=== PATIENT | female | born 1975 | race Caucasian/White ===

== ENCOUNTER 2018-03-10 03:07 | Emergency (ER) | payer MEDICAID ==
[2018-03-10 03:21] VITALS: BP 121/70
[2018-03-10 03:37] LABS: BILIRUBIN,URINE NEGATIVE (NEGATIVE); GLUCOSE, URINE (UA) NEGATIVE (NEGATIVE); KETONES,URINE (UA) NEGATIVE (NEGATIVE); LEUKOCYTE ESTERASE, URINE NEGATIVE (NEGATIVE); NITRITE,URINE NEGATIVE (NEGATIVE); OCCULT BLOOD,URINE SMALL (NEGATIVE); PROTEIN,URINE NEGATIVE (NEGATIVE); UROBILINOGEN,URINE 0.2 (NORMAL) E.U./dL (NORMAL)
[2018-03-10 03:45] LABS: BACTERIA,URINE None Seen /HPF (None Seen); CLARITY,URINE CLEAR (CLEAR); HCG UR QUAL NEGATIVE; SQUAMOUS EPITHELIAL CELL,UR RARE Squamous (<= Few)
[2018-03-10] MEDS ORDERED: PHENAZOPYRIDINE 100 MG TABLET PO STA (03:56)
[2018-03-10] MEDS ORDERED: SULFAMETH/TRIMETH DS 800/160 MG TABLET PO STA (03:56)
--- NOTE | 2018-03-10 03:56 | ED Physician Documentation ---
PD HPI FEMALE - Stated complaint Stated Complaint: FEMALE - Chief complaint Chief Complaint: Abd Pain - History obtained from History obtained from: Patient - History of Present Illness Timing - onset: Yesterday Timing - details: Gradual onset Associated symptoms: Pelvic pain, Dysuria, Urinary frequency Similar symptoms before: Work up / diagnostics Recently seen: Not recently seen - Additional information Additional information: Patient is a 43 year old diabetic female who is presenting to the emergency department for dysuria and increased urinary frequency. Patient states that the symptoms have been going on for the last few days. Patient reports a history of urinary tract and kidney infections and states that this feels similar. Review of Systems Ten Systems: 10 systems reviewed and negative Constitutional: denies: Fever, Chills GI: denies: Nausea, Constipation, Diarrhea : reports: Dysuria, Frequency, Hesitancy. 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 : None HEENT: None Psych: Bipolar disorder Musculoskeletal: None Derm: None - Past Surgical History Past Surgical History: Yes General: Cholecystectomy - Present Medications Home Medications: Ambulatory Orders Medication Instructions Recorded Confirmed ARIPiprazole [Abilify] 5 mg PO DAILY 03/10/18 03/10/18 Duloxetine HCl [Cymbalta] 120 mg PO 03/10/18 Gabapentin 300 mg PO 03/10/18 Insulin Aspart [Novolog Flexpen] 03/10/18 Phenazopyridine HCl [Pyridium] 200 mg PO TID PRN #6 tablet 03/10/18 Sulfamethox/Trimeth 800/160 1 each PO BID #14 tablet 03/10/18 [Bactrim Ds 800/160] metFORMIN [Glucophage] 500 mg PO ONCE 03/10/18 03/10/18 - Allergies Allergies/Adverse Reactions: Allergies Allergy/AdvReac Type Severity Reaction Status Date / Time naproxen Allergy Respiratory Verified 03/10/18 03:22 - Social History Does the pt smoke?: Yes Smoking Status: Current every day smoker Does the pt drink ETOH?: No Does the pt have substance abuse?: No Substance Use and Type: Marijuana - Immunizations Immunizations are current?: Yes PD ED PE NORMAL - Vitals Vital signs reviewed: Yes - General General: Alert and oriented X 3, No acute distress - HEENT HEENT: Atraumatic - Cardiac Cardiac: RRR - Respiratory Respiratory: No respiratory distress - Abdomen Abdomen: Soft - Derm Derm: Normal color - Extremities Extremities: No deformity - Neuro Neuro: Alert and oriented X 3 Eye Opening: Spontaneous - Psych Psych: Normal mood Results - Vitals Vitals: Vital Signs - 24 hr 03/10/18 03:18 Temperature 35.8 C L Heart Rate 72 Respiratory 16 Rate Blood Pressure 121/70 O2 Saturation 96 Oxygen O2 Source Room air - Labs Labs: Laboratory Tests 03/10/18 03:28 Urine Color YELLOW Urine Clarity CLEAR Urine pH 6.0 Ur Specific [place] 1.020 Urine Protein NEGATIVE Urine Glucose (UA) NEGATIVE Urine Ketones NEGATIVE Urine Occult Blood SMALL H Urine Nitrite NEGATIVE Urine Bilirubin NEGATIVE Urine Urobilinogen 0.2 (NORMAL) Ur Leukocyte Esterase NEGATIVE Urine RBC 6-10 H Urine WBC 0-3 Ur Squamous Epith Cells RARE Squamous Urine Bacteria None Seen Ur Microscopic Review INDICATED Urine Culture Comments NOT INDICATED Urine HCG, Qual NEGATIVE PD MEDICAL DECISION MAKING - ED course Complexity details: reviewed old records, reviewed results, re-evaluated patient , considered differential, d/w patient ED course: Patient was seen and examined at bedside. Urine was collected. while patient' s urine results were fairly unremarkable patient clinically had a urinary tract infection. patient was started on bactrim and pydridium. Patient required no further inpatient work up and was stable for discharge with outpatient follow up. - Sepsis Event Vital Signs: Vital Signs - 24 hr 03/10/18 03:18 Temperature 35.8 C L Heart Rate 72 Respiratory 16 Rate Blood Pressure 121/70 O2 Saturation 96 Oxygen O2 Source Room air Departure - Departure Disposition: 01 Home, Self Care Clinical Impression: Urinary tract infection Condition: Good Instructions: ED UTI Cystitis Female Follow-Up: Jermain Walker MD [Primary Care Provider] - Within 3 Days Prescriptions: Phenazopyridine HCl [Pyridium] 200 mg PO TID PRN #6 tablet PRN Reason: dysuria Sulfamethox/Trimeth 800/160 [Bactrim Ds 800/160] 1 each PO BID #14 tablet Comments: Your symptoms today are likely being caused by a urinary tract infection. You will need to stay well hydrated and increase your intake of water. You are being started on antibiotics and you will take them twice a day for the next week. You should take it with yogurt or probiotics to help reduce the gi side effects. You should follow up with your doctor if your symptoms persist. You may return to the emergency department at any time for new, worsening or uncontrollable symptoms. Discharge Date/Time: 03/10/18 04:04
== END 2018-03-10 04:04 | disposition home or self-care (01) ==
LOC: ED 03:07
DX: N39.0 Urinary tract infection, site not specified (principal); E11.9 Type 2 diabetes mellitus without complications; Z79.4 Long term (current) use of insulin
CPT/HCPCS: 81001; 81025; 99283; A9270; 81003; 87086

== ENCOUNTER 2018-04-04 08:07 | Outpatient (CLI) | payer MEDICAID ==
[2018-04-04 13:03] LABS: CALCIUM 9.2 mg/dL (8.5-10.3); CREATININE 0.7 mg/dL (0.4-1.0)
[2018-04-04 13:13] LABS: HEMOGLOBIN A1C 0.52 g/dL; HEMOGLOBIN A1C % 5.5 % (4.6-6.2)
== END 2018-04-04 08:08 | disposition home or self-care (01) ==
LOC: LAB.WCP 08:07
PROVIDERS: ATTEND Family Medicine
DX: E11.9 Type 2 diabetes mellitus without complications (principal)
CPT/HCPCS: 36415; 80048; 82043; 83036

== ENCOUNTER 2018-07-31 07:32 | Day surgery (SDC) | payer MEDICAID ==
[~2018-07-31 07:32] MED LIST: LACTATED RINGERS 1,000 ML IV ONE
[2018-07-31] MEDS ORDERED: LIDO GARGLE 30 ML BOTTLE ONE (08:08)
[2018-07-31 08:10] LABS: HCG UR QUAL NEGATIVE
[2018-07-31] MEDS ORDERED: MIDAZOLAM 2 MG/2 ML VIAL IVP ONE (08:18)
[2018-07-31] MEDS ORDERED: fentaNYL 100 MCG/2 ML VIAL IVP ONE (08:18)
[2018-07-31] MEDS ORDERED: BENZOCAINE/TETRACAINE/BUTAMBEN 20 GM TOP ONE (08:22)
[2018-07-31] MEDS ORDERED: LIDO GARGLE 30 ML BOTTLE PO ONE (08:22)
--- NOTE | 2018-07-31 10:23 | PROCEDURE REPORT ---
DATE OF SERVICE: 07/31/2018 Physician: Gm Triplett MD PREOPERATIVE DIAGNOSIS: Rectal bleeding. POSTOPERATIVE DIAGNOSIS: Normal esophagogastroduodenoscopy and colonoscopy. PROCEDURES: EGD and colonoscopy. INDICATIONS OF PROCEDURE: Patient is a 43-year-old woman who came to the clinic complaining of periodic rectal bleeding. She had an EGD and colonoscopy a year and a half ago which was significant for an ulcer at that time. PROCEDURE DETAIL: The risks and benefits were explained to the patient. She agreed to the procedure. She was taken to the operating room and given sedation. A well-lubricated endoscope was advanced through the oral cavity down to the second portion of the duodenum without difficulty. Duodenum was found to be normal. The scope was slowly withdrawn and the stomach insufflated. There were no signs of ulcers or gastritis or any other abnormality in the stomach. Retroflexion was performed at the GE junction. No abnormalities were seen. No evidence of hiatal hernia. The scope was then withdrawn into the esophagus. There were no signs of esophagitis. The scope was then completely withdrawn and the patient positioned for a colonoscopy. A well-lubricated colonoscope was advanced through the anus all the way to the cecum without difficulty. It was then slowly withdrawn with the colon insufflated to examine all the mucosal surfaces. Prep was adequate. She had a few scattered diverticula in the sigmoid colon. Otherwise, there were no abnormalities; that includes no masses, polyps, erosions or sources of bleeding. The scope was then completely withdrawn after retroflexion at the anal verge. She had evidence of internal hemorrhoids, which may be the source of her bleeding. The patient was then taken to recovery in stable condition, and procedure was terminated. COMPLICATIONS: None. SPECIMEN: None. PLAN: Repeat colonoscopy in 10 years. TD: 07/31/2018 09:35 SHAKILA
[2018-07-31 10:29] VITALS: BP 101/65
== END 2018-07-31 07:33 | disposition home or self-care (01) ==
LOC: SDS 07:32
PROVIDERS: ATTEND Surgery
PROC: 0DJD8ZZ Inspection of Lower Intestinal Tract, Via Natural or Artificial Opening Endoscopic (ICD-10-PCS; principal; 2018-07-31 08:30)
PROC: 0DJ08ZZ Inspection of Upper Intestinal Tract, Via Natural or Artificial Opening Endoscopic (ICD-10-PCS; 2018-07-31 08:30)
DX: K62.5 Hemorrhage of anus and rectum (principal); Z09 Encounter for follow-up examination after completed treatment for conditions other than malignant neoplasm; Z87.11 Personal history of peptic ulcer disease; Z86.010 Personal history of colon polyps; K57.30 Diverticulosis of large intestine without perforation or abscess without bleeding; E11.9 Type 2 diabetes mellitus without complications; F17.210 Nicotine dependence, cigarettes, uncomplicated; J45.909 Unspecified asthma, uncomplicated; F31.9 Bipolar disorder, unspecified; F41.0 Panic disorder [episodic paroxysmal anxiety]; E66.9 Obesity, unspecified; Z68.38 Body mass index [BMI] 38.0-38.9, adult; Z79.84 Long term (current) use of oral hypoglycemic drugs; Z79.51 Long term (current) use of inhaled steroids
CPT/HCPCS: 43235; 45378; 81025; A9270; J7120

== ENCOUNTER 2018-08-07 08:34 | Outpatient (CLI) | payer MEDICAID ==
--- NOTE | 2018-08-08 12:44 | Mammography Report ---
Reason: SCREENING MAMMO Procedure Date: 08/07/2018 Accession Number: [id number] / [id number] Procedure: MGN - Screening Mammo Dig Bilat CPT Code: FULL RESULT: EXAM: Screening Mammo Dig Bilat DATE: 08/07/2018 9:34 AM CLINICAL HISTORY: Routine screening. Baseline exam. TECHNIQUE: Bilateral CC and MLO views were obtained. COMPARISON: None FINDINGS: The breast tissue is heterogeneously dense. No suspicious masses, clustered microcalcifications, or regions of architectural distortion are identified. IMPRESSION: Negative examination RECOMMENDATION: Routine annual screening unless otherwise clinically indicated. BIRADS CATEGORY 1: Negative STANDARD QUALIFYING STATEMENTS: 1. This examination was reviewed with the aid of Computer-Aided Detection (CAD). 2. A negative or benign imaging report should not delay biopsy if clinically suspicious findings are present. Consider surgical consultation if warrented. More than 5% of cancers are not identified by imaging. 3. Dense breasts may obscure an underlying neoplasm.
== END 2018-08-07 08:35 | disposition home or self-care (01) ==
LOC: DI.N 08:34
DX: Z12.31 Encounter for screening mammogram for malignant neoplasm of breast (principal)
CPT/HCPCS: 77067

== ENCOUNTER 2018-11-23 17:00 | Outpatient (CLI) | payer MEDICAID | END 2018-11-23 17:01 | disposition EMS.NT | LOC: EMS 17:00 | PROVIDERS: ATTEND Surgery | DX: M54.9 Dorsalgia, unspecified (principal); R06.02 Shortness of breath; R07.1 Chest pain on breathing; E11.9 Type 2 diabetes mellitus without complications; I10 Essential (primary) hypertension; Z72.0 Tobacco use ==

== ENCOUNTER 2019-02-14 08:00 | Outpatient (CLI) | payer MEDICAID ==
[2019-02-14 12:41] LABS: CREATININE,URINE 208.7 mg/dL; HB2 TOTAL 13.5 g/dL; HEMOGLOBIN A1C 0.77 g/dL; HEMOGLOBIN A1C % 7.4 % (4.6-6.2); MICROALBUM/CREATININE RATIO,UR 4.8 ug/mg (<30.0)
[2019-02-14 12:42] LABS: BUN - BLOOD UREA NITROGEN 12 mg/dL (6-20); CALCIUM 8.8 mg/dL (8.5-10.3); CARBON DIOXIDE - CO2 26 mmol/L (21-32); CHLORIDE 101 mmol/L (101-111); CHOL/HDL RATIO 5.3 (<4.4); CHOLESTEROL 139 mg/dL; CREATININE 0.8 mg/dL (0.4-1.0); GFR - MDRD 79 (>89); GLUCOSE 254 mg/dL (70-100); HDL CHOLESTEROL 26 mg/dL; LDL CHOLESTEROL,CALCULATED 86 mg/dL; LDL/HDL RATIO 3.3 (<4.4); SODIUM 140 mmol/L (135-145); VLDL CHOLESTEROL 27 mg/dL
== END 2019-02-14 23:59 | disposition home or self-care (01) ==
LOC: LAB.N 08:00
PROVIDERS: ATTEND Family Medicine
DX: E11.9 Type 2 diabetes mellitus without complications (principal); Z13.220 Encounter for screening for lipoid disorders
CPT/HCPCS: 36415; 80048; 80061; 82043; 82570; 83036; 83721

== ENCOUNTER 2019-04-08 16:57 | Emergency (ER) | payer MEDICAID ==
[2019-04-08 17:05] VITALS: BP 122/74
[2019-04-08] MEDS ORDERED: IPRATROPIUM/ALBUTEROL 3 ML NEB INH STA (17:17)
--- NOTE | 2019-04-08 17:37 | ED Physician Documentation ---
PD HPI DYSPNEA - Stated complaint Stated Complaint: SOA - Chief complaint Chief Complaint: Resp - History obtained from History obtained from: Patient - History of Present Illness Timing - onset: Yesterday Timing - onset during: Rest Timing - duration: Days (2) Timing - details: Gradual onset Pain level max: 0 Pain level now: 0 Improved by: Rest Worsened by: Exertion Associated symptoms: Cough, Wheezing. No: Fever Recently seen: Not recently seen - Additional information Additional information: smokes 1ppd. history of asthma. no inhaler. 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 : None HEENT: None Psych: Depression, Anxiety, Bipolar disorder, Panic attacks Musculoskeletal: None Derm: Psoriasis - Past Surgical History Past Surgical History: Yes General: Cholecystectomy, Colonoscopy /FACEPIECE LINE SUPERVISOR: Tubal ligation, LEEP (Cervical surgery) - Present Medications Home Medications: Ambulatory Orders Medication Instructions Recorded Confirmed metFORMIN [Glucophage] 500 mg PO ONCE 03/10/18 07/30/18 Amitriptyline [Elavil] 25 mg PO DAILY 07/30/18 07/30/18 Oxybutynin [Ditropan] 5 mg PO DAILY 07/30/18 07/30/18 Topiramate [Topamax] 50 mg PO DAILY 07/30/18 07/30/18 Albuterol Sulfate [Proair Hfa 1 - 2 puffs INH Q4H PRN #1 inhaler 04/08/19 Inhaler] predniSONE [Deltasone] 10 mg PO [id number] #42 tab 04/08/19 - Allergies Allergies/Adverse Reactions: Allergies Allergy/AdvReac Type Severity Reaction Status Date / Time acetaminophen [From Percocet] Allergy Respiratory Verified 04/08/19 17:05 naproxen Allergy Respiratory Verified 04/08/19 17:05 oxycodone [From Percocet] Allergy Respiratory Verified 04/08/19 17:05 - Social History Does the pt smoke?: Yes Smoking Status: Current every day smoker Does the pt drink ETOH?: No Does the pt have substance abuse?: No - Immunizations Immunizations are current?: Yes PD ED PE NORMAL - Vitals Vital signs reviewed: Yes - General General: Alert and oriented X 3 - HEENT HEENT: Moist mucous membranes - Neck Neck: Supple, no meningeal sign - Cardiac Cardiac: RRR - Respiratory Respiratory: Other (Wheezing bilaterally with diminished breath sounds. Mild respiratory distress) - Abdomen Abdomen: Soft, Non tender, Non distended - Derm Derm: Warm and dry, No rash - Extremities Extremities: No edema - Neuro Neuro: Alert and oriented X 3 Results - Vitals Vitals: Vital Signs - 24 hr 04/08/19 04/08/19 04/08/19 17:03 17:25 18:12 Temperature 36.4 C L Heart Rate 87 73 76 Respiratory 24 22 20 Rate Blood Pressure 122/74 O2 Saturation 97 Oxygen O2 Source Room air - Rads (name of study) Chest x-ray Radiology: Prelim report reviewed, EMP read contemporaneously, See rad report (Atelectasis in the bases with tiny pleural effusions. ) PD MEDICAL DECISION MAKING - ED course Complexity details: reviewed results, re-evaluated patient, considered differential, d/w patient ED course: 44-year-old female with what appears to be an asthma exacerbation likely secondary to viral URI. Feels much better after nebulizer treatment and steroids. No hypoxia. No further respiratory distress. No indication for antibiotics. Will prescribe an inhaler and steroids for home and follow-up with her doctor. Patient counseled regarding signs and symptoms for which I believe and urgent re-evaluation would be necessary. Patient with good understanding of and agreement to plan and is comfortable going home at this time This document was made in part using voice recognition software. While efforts are made to proofread this document, sound alike and grammatical errors may occur. Departure - Departure Disposition: 01 Home, Self Care Clinical Impression: Viral URI Condition: Good Instructions: ED URI Viral W Wheezing Follow-Up: ОЛЕГ FLORES MD [Primary Care Provider] - Within 1 week Prescriptions: Albuterol Sulfate [Proair Hfa Inhaler] 1 - 2 puffs INH Q4H PRN #1 inhaler PRN Reason: Shortness Of Air/Wheezing predniSONE [Deltasone] 10 mg PO [id number] #42 tab Comments: Return if you worsen. Follow up with your doctor tomorrow as scheduled. There is no pneumonia on your chest xray Discharge Date/Time: 04/08/19 18:55
[2019-04-08] MEDS ORDERED: ALBUTEROL NEB 2.5 MG/3 ML INH STA (17:52)
[2019-04-08] MEDS ORDERED: predniSONE 20 MG TABLET PO STA (17:52)
--- NOTE | 2019-04-08 18:45 | XRAY Report ---
Reason: wheezing, dyspnea Procedure Date: 04/08/2019 Accession Number: [id number] / [id number] Procedure: XR - Chest 2 View X-Ray CPT Code: 50050 FULL RESULT: EXAM: CHEST RADIOGRAPHY EXAM DATE: 04/08/2019 06:11 PM. CLINICAL HISTORY: Wheezing. Dyspnea. Cough. COMPARISON: None. TECHNIQUE: 2 views. FINDINGS: Lungs/Pleura: Atelectasis in the bases, otherwise no focal opacities evident. Tiny pleural effusions. No pneumothorax. Normal volumes. Mediastinum: Heart and mediastinal contours are unremarkable. Other: No fractures identified. IMPRESSION: Atelectasis in the bases with tiny pleural effusions. RADIA
== END 2019-04-08 18:55 | disposition home or self-care (01) ==
LOC: ED 16:57
DX: J06.9 Acute upper respiratory infection, unspecified (principal); J45.909 Unspecified asthma, uncomplicated; F17.210 Nicotine dependence, cigarettes, uncomplicated; E11.9 Type 2 diabetes mellitus without complications; Z79.84 Long term (current) use of oral hypoglycemic drugs
CPT/HCPCS: 71046; 94640; 99284; J7512

== ENCOUNTER 2019-06-15 20:51 | Outpatient (CLI) | payer MEDICAID | END 2019-06-15 20:52 | disposition critical access hospital (66) | LOC: EMS 20:51 | PROVIDERS: ATTEND Surgery | DX: R07.89 Other chest pain (principal); R55 Syncope and collapse | CPT/HCPCS: A0425; A0427; A0999 ==

== ENCOUNTER 2019-06-15 21:12 | Emergency (ER) | payer MEDICAID ==
--- NOTE | 2019-06-15 21:30 | ED Physician Documentation ---
PD HPI CHEST PAIN - Stated complaint Stated Complaint: CHEST PAIN - Chief complaint Chief Complaint: Cardiac - History obtained from History obtained from: Patient - History of Present Illness Timing - onset: Today Timing - onset during: Other (Just prior to arrival standing at work) Timing - details: Abrupt onset Quality: Other (Squeezing) Location: Substernal Associated symptoms: Feeling faint / dizzy, Cough. 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 Rated the pain a 7 out of 10 it is now just a "discomfort". She said it felt like a tightness of squeezing and ringing type pain in the substernal region lasted for maybe 15 to 20 minutes and then she next thing she knew she woke up on the floor. Her coworker was standing there at her side at that time. She does not know how long she was out. No reported seizure activity. Patient did have a little difficulty breathing when she was having the pain and she felt dizzy. Denies headache. No urinary incontinence. She had no nausea vomiting or diarrhea. Patient is a diabetic and is on metformin and has had a syncopal episode related to low blood sugar in the past but her blood sugar was 167 in route here in the ambulance. She was given 4 baby aspirin and nitroglycerin in route. She denies any recent illness with sore throat or stuffy nose. No dysuria. She is not stating she just started her menstrual cycle yesterday and she is had her tubes tied. Patient does wake up at night with acid reflux and taste acid in the back of her throat. She was on omeprazole which she quit taking "a while back". Denies history of DVT. No peripheral edema. Patient is a smoker. Review of Systems Constitutional: denies: Fever Eyes: denies: Loss of vision Ears: denies: Ear pain Nose: denies: Rhinorrhea / runny nose Throat: denies: Sore throat Cardiac: reports: Chest pain / pressure. denies: Palpitations, Pedal edema Respiratory: reports: Dyspnea, Cough GI: denies: Abdominal Pain, Nausea, Vomiting, Diarrhea : reports: LMP (Just started). denies: Dysuria, Hesitancy, Incontinent, Now EGA Skin: denies: Rash Musculoskeletal: reports: Other (No injury in the syncopal epsode). denies: Neck pain, Back pain Neurologic: reports: Syncope, LOC. 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 : None HEENT: None Psych: Depression, Anxiety, Bipolar disorder, Panic attacks Musculoskeletal: None Derm: Psoriasis - Past Surgical History Past Surgical History: Yes General: Cholecystectomy, Colonoscopy /WATER GAS OPERATOR: Tubal ligation, LEEP (Cervical surgery) - Present Medications Home Medications: Ambulatory Orders Medication Instructions Recorded Confirmed metFORMIN [Glucophage] 500 mg PO ONCE 03/10/18 07/30/18 Amitriptyline [Elavil] 25 mg PO DAILY 07/30/18 07/30/18 Oxybutynin [Ditropan] 5 mg PO DAILY 07/30/18 07/30/18 Topiramate [Topamax] 50 mg PO DAILY 07/30/18 07/30/18 Albuterol Sulfate [Proair Hfa 1 - 2 puffs INH Q4H PRN #1 inhaler 04/08/19 Inhaler] predniSONE [Deltasone] 10 mg PO [id number] #42 tab 04/08/19 - Allergies Allergies/Adverse Reactions: Allergies Allergy/AdvReac Type Severity Reaction Status Date / Time acetaminophen [From Percocet] Allergy Respiratory Verified 06/15/19 21:19 naproxen Allergy Respiratory Verified 06/15/19 21:19 oxycodone [From Percocet] Allergy Respiratory Verified 06/15/19 21:19 - Social History Does the pt smoke?: Yes Smoking Status: Current every day smoker Does the pt drink ETOH?: No Does the pt have substance abuse?: No - Immunizations Immunizations are current?: Yes PD ED PE NORMAL - Vitals Vital signs reviewed: Yes - General General: Alert and oriented X 3, No acute distress, Well developed/nourished, Other (Obese) - HEENT HEENT: Atraumatic, PERRL, EOMI, Moist mucous membranes, Pharynx benign - Neck Neck: Supple, no meningeal sign, No bony TTP, No adenopathy, Thyroid normal, No bruit - Cardiac Cardiac: RRR, No murmur, Strong equal pulses - Respiratory Respiratory: No respiratory distress, Clear bilaterally - Abdomen Abdomen: Normal bowel sounds, Soft, Non tender, Non distended, No organomegaly - Derm Derm: Normal color, Warm and dry, No rash - Extremities Extremities: No deformity, No tenderness to palpate, Normal ROM s pain, No edema - Neuro Neuro: Alert and oriented X 3, bridge design engineer 2-12 intact, No motor deficit, No sensory deficit, Normal speech - Psych Psych: Normal mood, Normal affect Results - Vitals Vitals: Vital Signs - 24 hr 06/15/19 06/15/19 06/15/19 21:14 21:30 21:49 Temperature 37 C Heart Rate 84 78 75 Respiratory 15 22 19 Rate Blood Pressure 108/50 L 111/71 O2 Saturation 99 98 99 06/15/19 06/15/19 06/15/19 22:19 22:30 23:39 Temperature Heart Rate 80 76 82 Respiratory 21 21 16 Rate Blood Pressure 131/55 H 143/86 H 158/83 H O2 Saturation 100 100 98 06/16/19 06/16/19 06/16/19 00:06 00:36 01:06 Temperature Heart Rate 68 79 79 Respiratory 22 19 14 Rate Blood Pressure 144/99 H 108/52 L 120/73 O2 Saturation 99 100 99 06/16/19 06/16/19 01:30 02:00 Temperature 36.9 C Heart Rate 73 70 Respiratory 13 17 Rate Blood Pressure 123/70 123/70 O2 Saturation 99 99 Oxygen O2 Source Room air - EKG (time done) 2117 Rate: Rate (enter#) (81) Rhythm: NSR Intervals: Normal NV. No: Wide QRS Ischemia: Normal ST segments, Q waves (II, III, avF) 0100 Rate: Rate (enter#) (68) Rhythm: NSR Intervals: Normal NV. No: Prolonged QT, Wide QRS Ischemia: Normal ST segments, Q waves (II, III, avF) Compare to prior EKG: Unchanged from prior EKG - Labs Labs: Laboratory Tests 06/15/19 06/15/19 06/15/19 21:55 21:55 21:55 WBC 9.3 RBC 4.91 Hgb 12.0 Hct 37.8 MCV 77.0 L MCH 24.4 L MCHC 31.7 L RDW 16.5 H Plt Count 271 MPV 10.3 Neut # (Auto) 6.1 Lymph # (Auto) 2.2 [place] # (Auto) 0.6 Eos # (Auto) 0.3 Baso # (Auto) 0.1 Absolute Nucleated RBC 0.00 Nucleated RBC % 0.0 D-Dimer Sodium 138 Potassium 3.7 Chloride 102 Carbon Dioxide 30 Anion Gap 6.0 BUN 12 Creatinine 0.7 Estimated GFR (MDRD) 92 Glucose 179 H Calcium 9.0 Phosphorus 3.5 Magnesium 2.2 Total Bilirubin 0.3 AST 16 ALT 22 Alkaline Phosphatase 74 Troponin I High Sens 2.5 Total Protein 6.4 L Albumin 3.6 Globulin 2.8 Albumin/Globulin Ratio 1.3 Lipase 35 Serum HCG, Qual 06/15/19 06/15/19 06/16/19 21:55 21:55 00:55 WBC RBC Hgb Hct MCV MCH MCHC RDW Plt Count MPV Neut # (Auto) Lymph # (Auto) [place] # (Auto) Eos # (Auto) Baso # (Auto) Absolute Nucleated RBC Nucleated RBC % D-Dimer 206.3 Sodium Potassium Chloride Carbon Dioxide Anion Gap BUN Creatinine Estimated GFR (MDRD) Glucose Calcium Phosphorus Magnesium Total Bilirubin AST ALT Alkaline Phosphatase Troponin I High Sens 2.4 Total Protein Albumin Globulin Albumin/Globulin Ratio Lipase Serum HCG, Qual NEGATIVE - Rads (name of study) CXR Radiology: EMP read contemporaneously (Neg acute) CT head Radiology: See rad report (Neg acute) PD MEDICAL DECISION MAKING - ED course ED course: EKG does not show any acute changes. Initial troponin is negative. Her blood sugar was elevated. CBC and CMP otherwise normal. Chest x-ray is clear and head CT is negative. We will keep the patient here on a monitored bed for repeat troponin. She is taking phentermine and has been on it about 4 months. She did not feel any palpitations prior to passing out. Patient reported to nursing staff that she was having increase in her chest pain to about a 3 out of 10. She feels like she needs to burp. Will medicate with a GI cocktail to see if that alleviates her discomfort. 0131: The GI cocktail did nothing to alleviate the patient's pain. She has b een ordered for morphine 2 mg and Zofran 4 mg IV. Even though she is had a reaction to oxycodone in the past she is tolerated IV morphine. She was also given Pepcid IV. Her repeat troponin was unchanged and her EKG was unchanged. The pain was partially relieved with the morphine. At this point I do not think this is cardiac related chest pain and feel comfortable discharging the patient home. She is on the phentermine and said that she only has 1 dose of it left but I have encouraged her to follow-up with her primary care provider about whether or not that an appropriate medication for her to be taking given this event. She does not have any significant injuries from this syncope despite reports of being in a standing position when she passed out. She will be given a note for work tomorrow and referred back to her primary care provider for further work-up. Departure - Departure Disposition: 01 Home, Self Care Clinical Impression: Atypical chest pain Syncope Qualifiers: Syncope type: unspecified Qualified Code(s): R55 - Syncope and collapse Condition: Good Instructions: ED Chest Pain Atypical Unkn Cause, ED Fainting Unkn Cause Follow-Up: ОЛЕГ FLORES MD [Primary Care Provider] - Comments: Follow-up with your primary care provider about the chest pain if it continues and for follow-up of the episode of passing out. Return to the emergency department if you have another episode where you pass out especially if you injure yourself, have increasing abdominal pain or feel rapid heart rate. Forms: Activity restrictions
[2019-06-15 22:07] LABS: BASOPHILS # (AUTO) 0.1 10^3/uL (0.0-0.1); BASOPHILS % (AUTO) 0.5 %; EOSINOPHILS # (AUTO) 0.3 10^3/uL (0.0-0.7); EOSINOPHILS % (AUTO) 3.3 %; LYMPHOCYTES # (AUTO) 2.2 10^3/uL (1.5-3.5); LYMPHOCYTES % (AUTO) 23.3 %; MEAN CORPUSCULAR HEMOGLOBIN 24.4 pg (27.0-31.0); MEAN CORPUSCULAR HGB CONC 31.7 g/dL (32.0-36.0); MEAN PLATELET VOLUME 10.3 fL (7.9-10.8); MONOCYTES # (AUTO) 0.6 10^3/uL (0.0-1.0); MONOCYTES % (AUTO) 6.8 %; NEUTROPHILS # (AUTO) 6.1 10^3/uL (1.5-6.6); NEUTROPHILS % (AUTO) 65.7 %; PLT - PLATELET COUNT 271 10^3/uL (130-450); RED BLOOD COUNT 4.91 10^6/uL (4.20-5.40); RED CELL DISTRIBUTION WIDTH 16.5 % (12.0-15.0); WHITE BLOOD COUNT 9.3 x10^3/uL (4.8-10.8)
[2019-06-15 22:19] LABS: ALBUMIN 3.6 g/dL (3.2-5.5); ALBUMIN/GLOBULIN RATIO 1.3 (1.0-2.2); BILIRUBIN,TOTAL 0.3 mg/dL (0.2-1.0); MAGNESIUM 2.2 mg/dL (1.7-2.8); PHOSPHORUS 3.5 mg/dL (2.5-4.6); TOTAL PROTEIN 6.4 g/dL (6.7-8.2)
--- NOTE | 2019-06-15 22:30 | XRAY Report ---
Reason: chest pain Procedure Date: 06/15/2019 Accession Number: [id number] / [id number] Procedure: XR - Chest 1 View X-Ray CPT Code: 49145 Final Report FULL RESULT: EXAM: CHEST RADIOGRAPHY EXAM DATE: 06/15/2019 10:13 PM. CLINICAL HISTORY: Chest pain. COMPARISON: CHEST 2 VIEW 04/08/2019 5:56 PM. TECHNIQUE: 1 view. FINDINGS: Lungs/Pleura: No focal opacities evident. No pleural effusion. No pneumothorax. Mediastinum: Within exam limitations, the cardiomediastinal contour is normal. Other: None. IMPRESSION: Normal single view chest. RADIA
--- NOTE | 2019-06-15 22:30 | CT Report ---
Reason: syncope Procedure Date: 06/15/2019 Accession Number: [id number] / [id number] Procedure: CT - HEAD WO CPT Code: Final Report FULL RESULT: EXAM: CT HEAD EXAM DATE: 06/15/2019 10:12 PM. CLINICAL HISTORY: Syncope. Fainted at work today. No signs of head trauma. COMPARISON: None. TECHNIQUE: Multiaxial CT images were obtained from the foramen magnum to the vertex. Reformats: Sagittal and coronal. IV contrast: None. In accordance with CT protocol optimization, one or more of the following dose reduction techniques were utilized for this exam: automated exposure control, adjustment of mA and/or KV based on patient size, or use of iterative reconstructive technique. FINDINGS: Parenchyma: No mass-effect or midline shift. No evidence for edema. No evidence for intracranial hemorrhage. Extraaxial Spaces: Normal for age. No subdural or epidural collections identified. Ventricles: Normal in size and position. Sinuses and Orbits: No acute findings. Moderate right maxillary sinus mucosal thickening. Otherwise, mild pansinus mucosal thickening. Bilateral mastoid air cells appear clear. Bones: No evidence of fracture or calvarial defect. IMPRESSION: 1. No acute or focal intracranial abnormality seen. 2. Moderate right maxillary sinus mucosal thickening. Otherwise, mild pansinus mucosal thickening. [facility]
[2019-06-15] MEDS ORDERED: MAG HYDROX/AL HYDROX/SIMETH 30 ML UDC PO STA (22:33)
[2019-06-15] MEDS ORDERED: LIDOCAINE VISCOUS 2% 15 ML UDC MM STA (22:34)
[2019-06-15 22:38] LABS: CREATININE 0.7 mg/dL (0.4-1.0)
[2019-06-15 22:44] LABS: HCG,QUALITATIVE BLOOD NEGATIVE
[2019-06-16] MEDS ORDERED: MORPHINE 2 MG/ML CARPUJECT IVP STA (01:14)
[2019-06-16] MEDS ORDERED: ONDANSETRON 4 MG/2 ML VIAL IVP STA (01:14)
[2019-06-16 01:48] VITALS: BP 123/70
== END 2019-06-16 02:13 | disposition home or self-care (01) ==
LOC: EDUNIT# → ED 21:12
DX: R07.89 Other chest pain (principal); R55 Syncope and collapse; E11.65 Type 2 diabetes mellitus with hyperglycemia; Z79.84 Long term (current) use of oral hypoglycemic drugs; F17.200 Nicotine dependence, unspecified, uncomplicated
CPT/HCPCS: 36415; 70450; 71045; 80053; 83690; 83735; 84100; 84484; 84703; 85025; 85379; 93005; 96374; 99284; A9270